=== PATIENT | female | born 1955 | race Caucasian/White ===

== ENCOUNTER 2017-09-19 06:43 | Day surgery (SDC) | payer BC ==
[~2017-09-19 06:43] MED LIST: Lactated Ringers 1,000 ML IV SCH
[2017-09-19] MEDS ORDERED: Midazolam 1 MG/ML 2 ML SDV ONE (06:58)
[2017-09-19] MEDS ORDERED: Propofol 200 MG/20 ML SDV ONE (06:58)
[2017-09-19] MEDS ORDERED: fentaNYL 100 MCG/2 ML SDV ONE (06:58)
[2017-09-19] MEDS ORDERED: Dexamethasone 4 MG/ML 5 ML MDV ONE (07:28)
[2017-09-19] MEDS ORDERED: Ondansetron 4 MG/2 ML SDV ONE (07:28)
--- NOTE | 2017-09-19 07:37 | PCM.PREANE ---
Preanesthetic Assessment - Anesthesia/Transfusion/Family Hx Anesthesia History: Prior Anesthesia Reaction Type of Anesthesia Reaction: Excessive Nausea/Vomiting Family History of Anesthesia Reaction: No Transfusion History: No Prior Transfusion(s) - Review of Systems General: No Symptoms Pulmonary: No Symptoms Cardiovascular: No Symptoms Neurological: No Symptoms Other: Reports: None - Physical Assessment NPO Status Date: 09/18/17 O2 Sat by Pulse Oximetry: 92 Respiratory Rate: 16 Vital Signs: Last Vital Signs Temp 36.3 C 09/19/17 06:53 Pulse 79 09/19/17 06:53 Resp 16 09/19/17 06:53 BP 139/90 09/19/17 06:53 Pulse Ox 92 L 09/19/17 06:53 Height: 1.63 m Weight: 106.594 kg ASA Class: 2 Mental Status: Alert & Oriented x3 Airway Class: Mallampati = 2 Dentition: Reports: Normal Dentition ROM/Head Extension: Full Lungs: Clear to Auscultation, Normal Respiratory Effort Cardiovascular: Regular Rate, Regular Rhythm - Allergies Allergies/Adverse Reactions: Allergies Allergy/AdvReac Type Severity Reaction Status Date / Time No Known Allergies Allergy Verified 08/13/14 07:34 - Anesthesia Plan Pre-Op Medication Ordered: None Beta Carrol: Atenolol - Acknowledgements Anesthesia Type Planned: MAC Pt an Appropriate Candidate for the Planned Anesthesia: Yes Alternatives and Risks of Anesthesia Discussed w Pt/Guardian: Yes Pt/Guardian Understands and Agrees with Anesthesia Plan: Yes Additional Comments: colonosopy for sx, pmh: htn, hx of a fib/flutter (parox), remote hx of rad after pneumonia 4 yr ago. last used inhaler 12 mo ago. 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: Musculoskeletal History: Reports: Back Pain, Chronic, Fracture Other Musculoskeletal History: chronic michelle knee pain, hx fx radius-ulna Endocrine/Metabolic History: Reports: Obesity/BMI 30+ - Infectious Disease History Infectious Disease History: Reports: Chicken Pox, Herpes, Measles, Mumps - Past Surgical History Head Surgeries/Procedures: Reports: None HEENT Surgical History: Reports: Cataract Surgery GI Surgical History: Reports: Appendectomy, Cholecystectomy Female Surgical History: Reports: Section, Hysterectomy Musculoskeletal Surgical History: Reports: Arthroscopic Knee Other Musculoskeletal Surgeries/Procedures:: external fixator - SUBSTANCE USE Smoking Status *Q: Never Smoker Recreational Drug Use History: No - HOME MEDS Home Medications: Home Meds Aspirin [Adult Low Dose Aspirin EC] 81 mg PO DAILY 02/06/16 [History] Celecoxib [CeleBREX] 200 mg PO BID PRN 02/06/16 [History] Metoprolol Succinate [Toprol XL 100mg] 100 mg PO DAILY 02/06/16 [History] Albuterol Sulfate [Proair Hfa] 2 puff INH ASDIRECTED PRN 09/14/17 [History] Calcium Citrate/Vitamin D3 [Citracal-Vit D 250 MG-200] 2 tab PO DAILY 09/14/17 [ History] Estradiol [Vagifem] 1 tab VAG ASDIRECTED 09/14/17 [History] Glucosamine/D3/Boswellia Gabriella [Osteo Bi-Flex Tablet] 2 tab PO DAILY 09/14/17 [ History] Ibandronate Sodium 150 mg PO ASDIRECTED 09/14/17 [History] Multivit-Min/FA/Lycopene/Lut [Centrum Silver Tablet] 1 tab PO DAILY 09/14/17 [ History] Simvastatin [Zocor] 20 mg PO BEDTIME 09/14/17 [History] Ubidecarenone [Coq-10] 100 mg PO ASDIRECTED 09/14/17 [History] - CURRENT (IN HOUSE) MEDS Current Meds: Current Medications Lactated Ringer's (Ringers, Lactated) 1,000 mls @ 125 mls/hr IV ASDIRECTED SLY Last Admin: 09/19/17 06:58 Dose: 125 mls/hr Discontinued Medications Dexamethasone (Dexamethasone) Confirm Administered Dose 20 mg .ROUTE .STK-MED ONE Stop: 09/19/17 07:29 Fentanyl (Sublimaze) Confirm Administered Dose 100 mcg .ROUTE .STK-MED ONE Stop: 09/19/17 06:59 Lidocaine HCl (Xylocaine-Mpf 1%) Confirm Administered Dose 5 ml .ROUTE .STK-MED ONE Stop: 09/19/17 06:59 Midazolam HCl (Versed 1 Mg/Ml) Confirm Administered Dose 2 mg .ROUTE .STK-MED ONE Stop: 09/19/17 06:59 Ondansetron HCl (Zofran) Confirm Administered Dose 4 mg .ROUTE .STK-MED ONE Stop: 09/19/17 07:29 Propofol (Diprivan 20 Ml) Confirm Administered Dose 200 mg .ROUTE .STK-MED ONE Stop: 09/19/17 06:59
[2017-09-19] MEDS ORDERED: Lactated Ringers 1,000 ML IV SCH (08:15)
--- NOTE | 2017-09-19 08:15 | PCM.OPNOTE ---
- General Post-Op/Procedure Note Date of Surgery/Procedure: 09/19/17 Operative Procedure(s): Colonoscopy Pre Op Diagnosis: Change in bowel habits Post-Op Diagnosis: No evidence of neoplasia Anesthesia Technique: MAC (ASA II) Primary Surgeon: Timmy El Condition: Good Free Text/Narrative:: Dictation [id number] CPT CODE [id number]
--- NOTE | 2017-09-19 08:26 | PCM.POSTAN ---
POST ANESTHESIA ASSESSMENT - MENTAL STATUS Mental Status: Alert, Oriented - RESPIRATORY Respiratory Status: Respiratory Rate WNL, Airway Patent, O2 Saturation Stable - CARDIOVASCULAR CV Status: Pulse Rate WNL, Blood Pressure Stable - GASTROINTESTINAL GI Status: No Symptoms - PAIN Pain Score: 0 - POST OP HYDRATION Hydration Status: Adequate & Stable
--- NOTE | 2017-09-19 08:26 | PCM48HPAN ---
Post Anesthesia Note - EVALUATION WITHIN 48HRS OF ANESTHETIC Vital Signs in Normal Range: Yes Patient Participated in Evaluation: Yes Respiratory Function Stable: Yes Airway Patent: Yes Cardiovascular Function Stable: Yes Hydration Status Stable: Yes Pain Control Satisfactory: Yes Nausea and Vomiting Control Satisfactory: Yes Mental Status Recovered: Yes
--- NOTE | 2017-09-19 08:30 | OR ---
SURGEON: Timmy El M.D. DATE OF PROCEDURE: 09/19/2017 OPERATION PERFORMED: Colonoscopy. ANESTHESIA: MAC. ASA CLASSIFICATION: II. PREOPERATIVE DIAGNOSIS: Change in bowel habits. POSTOPERATIVE DIAGNOSIS: No evidence of colonic neoplasia. DESCRIPTION OF PROCEDURE: The patient was taken to the endoscopy room and positioned on the endoscopy table in the left lateral decubitus position. Time-out was called for appropriate identification of patient and procedure. Monitored anesthesia care was provided. The colonoscope was inserted into the rectum and advanced with minimal difficulty to the cecum where the colonoscope was retroflexed to visualize the ascending colon from below. The colonoscope was then straightened and slowly withdrawn. The cecum, ascending colon, hepatic flexure, transverse colon, splenic flexure, descending colon, sigmoid colon, and rectum were very well visualized. No tumors, polyps, diverticula, or angiodysplastic changes were noted. The colonoscope was withdrawn to the rectum and retroflexed to visualize the anal orifice from above. No tumors or polyps were seen and there were no acute hemorrhoidal changes. The colonoscope was then straightened. The rectum aspirated and the colonoscope removed. The patient tolerated the procedure well and was taken to recovery room in stable condition. ANGELA HORAN /[id number]
[2017-09-19 08:39] VITALS: BP 102/70
== END 2017-09-19 08:40 | disposition home or self-care (01) ==
LOC: MW.SDS 06:43
PROVIDERS: ATTEND Surgery
DX: R19.4 Change in bowel habit (principal); M17.10 Unilateral primary osteoarthritis, unspecified knee; I48.92 Unspecified atrial flutter; I10 Essential (primary) hypertension; E78.5 Hyperlipidemia, unspecified; M81.0 Age-related osteoporosis without current pathological fracture; E66.9 Obesity, unspecified; Z87.01 Personal history of pneumonia (recurrent); Z79.82 Long term (current) use of aspirin; Z79.899 Other long term (current) drug therapy; Z98.49 Cataract extraction status, unspecified eye; Z90.49 Acquired absence of other specified parts of digestive tract; Z90.710 Acquired absence of both cervix and uterus; Z98.890 Other specified postprocedural states; Z68.41 Body mass index [BMI] 40.0-44.9, adult
CPT/HCPCS: 45378; J1100; J2250; J2405; J3010; J7120; 00810; J2704

== ENCOUNTER 2019-02-05 09:52 | Inpatient (IN) | payer BC ==
[~2019-02-05 09:52] MED LIST changes: +Acetaminophen 1,000 MG in Premix Bag 1 BAG IV SCH; +Famotidine 20 MG/2 ML SDV IVPUSH SCH; +Ketorolac 30 MG/ML SDV IVPUSH SCH; -Lactated Ringers 1,000 ML IV SCH; +Ropivacaine 49.25 ML, Ketorolac 30 MG, EPINEPHrine 0.5 MG, cloNIDine 80 MCG in Sodium C... INJECT SCH; +Scopolamine 1.5 MG Transdermal Patch TRDERM SCH; +Tranexamic Acid 2,000 MG in Sodium Chloride 0.9% 100 ML IV SCH; +ceFAZolin 2 GM in Premix Bag 1 BAG IV SCH
[2019-02-05] MEDS ORDERED: Propofol 200 MG/20 ML SDV ONE ×2 (10:06→13:13)
[2019-02-05] MEDS ORDERED: fentaNYL 100 MCG/2 ML SDV ONE ×3 (10:06→14:02)
[2019-02-05] MEDS ORDERED: ceFAZolin/Dextrose,Iso-Osmotic 2 GM/50 ML Duplex Bag IV ONE (10:15)
[2019-02-05] MEDS: Lactated Ringers 1,000 ML IV SCH (10:32)
--- NOTE | 2019-02-05 10:35 | PCM.PREANE ---
Preanesthetic Assessment - Anesthesia/Transfusion/Family Hx Anesthesia History: Prior Anesthesia Without Reaction Family History of Anesthesia Reaction: No Transfusion History: No Prior Transfusion(s) Intubation History: Unknown - Review of Systems General: No Symptoms Pulmonary: No Symptoms Cardiovascular: No Symptoms Gastrointestinal: No Symptoms Neurological: No Symptoms Other: Reports: None - Physical Assessment Height: 1.63 m Weight: 106.594 kg ASA Class: 3 Mental Status: Alert & Oriented x3 Airway Class: Mallampati = 2 Dentition: Reports: Normal Dentition Thyro-Mental Finger Breadths: 2 Mouth Opening Finger Breadths: 3 ROM/Head Extension: Full Lungs: Clear to Auscultation, Normal Respiratory Effort Cardiovascular: Regular Rate, Regular Rhythm - Allergies Allergies/Adverse Reactions: Allergies Allergy/AdvReac Type Severity Reaction Status Date / Time hydromorphone [From Dilaudid] Allergy Nausea and Verified 01/30/19 09:42 Vomiting - Blood Blood Available: No - Anesthesia Plan Pre-Op Medication Ordered: None - Acknowledgements Anesthesia Type Planned: Spinal (general anesthesia back-up) Pt an Appropriate Candidate for the Planned Anesthesia: Yes Alternatives and Risks of Anesthesia Discussed w Pt/Guardian: Yes Pt/Guardian Understands and Agrees with Anesthesia Plan: Yes PreAnesthesia Questionnaire HEENT History: Reports: Impaired Vision Other HEENT History: wears glasses "sometimes" Cardiovascular History: Reports: High Cholesterol, Hypertension, Other (See Below) Other Cardiovascular History: hx atrial flutter Respiratory History: Reports: Other (See Below) Other Respiratory History: hx pneumonia Gastrointestinal History: Reports: None Genitourinary History: Reports: 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: Musculoskeletal History: Reports: Fracture, Osteoarthritis, Osteoporosis, Other (See Below) Other Musculoskeletal History: hx fx radius-ulna, brachail plexus left shoulder since Neurological History: Reports: None Psychiatric History: Reports: None Endocrine/Metabolic History: Reports: Obesity/BMI 30+ (BMI 40.3) Hematologic History: Reports: None Immunologic History: Reports: None Oncologic (Cancer) History: Reports: None Dermatologic History: Reports: None - Infectious Disease History Infectious Disease History: Reports: Chicken Pox, Herpes, Measles, Mumps - Past Surgical History Head Surgeries/Procedures: Reports: None HEENT Surgical History: Reports: Cataract Surgery, Tonsillectomy Respiratory Surgical History: Reports: None GI Surgical History: Reports: Appendectomy, Cholecystectomy Female Surgical History: Reports: Section, Hysterectomy, Oophorectomy Neurological Surgical History: Reports: None Musculoskeletal Surgical History: Reports: Arthroscopic Knee Other Musculoskeletal Surgeries/Procedures:: external fixator, michelle knee scope Oncologic Surgical History: Reports: None Dermatological Surgical History: Reports: None - SUBSTANCE USE Smoking Status *Q: Never Smoker Recreational Drug Use History: No - HOME MEDS Home Medications: Home Meds Aspirin [Adult Low Dose Aspirin EC] 81 mg PO DAILY 02/06/16 [History] Celecoxib [CeleBREX] 200 mg PO BID PRN 02/06/16 [History] Metoprolol Succinate [Toprol XL 100mg] 100 mg PO DAILY 02/06/16 [History] Albuterol Sulfate [Proair Hfa] 2 puff INH ASDIRECTED PRN 09/14/17 [History] Calcium Citrate/Vitamin D3 [Citracal-Vit D 250 MG-200] 2 tab PO DAILY 09/14/17 [ History] Estradiol [Vagifem] 1 tab VAG ASDIRECTED 09/14/17 [History] Glucosamine/D3/Boswellia Gabriella [Osteo Bi-Flex Tablet] 2 tab PO DAILY 09/14/17 [ History] Ibandronate Sodium 150 mg PO ASDIRECTED 09/14/17 [History] Multivit-Min/FA/Lycopene/Lut [Centrum Silver Tablet] 1 tab PO DAILY 09/14/17 [ History] Simvastatin [Zocor] 20 mg PO BEDTIME 09/14/17 [History] Ubidecarenone [Coq-10] 100 mg PO ASDIRECTED 09/14/17 [History] Meclizine HCl 25 mg PO ASDIRECTED PRN 01/30/19 [History] Ondansetron [Zofran] 4 mg PO ASDIRECTED PRN 01/30/19 [History] - CURRENT (IN HOUSE) MEDS Current Meds: Current Medications Famotidine (Pepcid) 40 mg IVPUSH ONARRIVE SLY Acetaminophen 1,000 mg/ Premix 100 mls @ 400 mls/hr IV ONARRIVE SLY Cefazolin Sodium/Dextrose 2 gm (/ Premix) 50 mls @ 100 mls/hr IV ONCALL SLY Ropivacaine 49.25 ml/Ketorolac Tromethamine 30 mg/Epinephrine HCl 0.5 mg/ Clonidine HCl 80 mcg/ Sodium Chloride 75 mls @ 50 mls/sec INJECT ASDIRECTED [facility] Lactated Ringer's (Ringers, Lactated) 1,000 mls @ 100 mls/hr IV ASDIRECTED SLY Last Admin: 02/05/19 10:32 Dose: 100 mls/hr Tranexamic Acid 2,000 mg/ (Sodium Chloride) 120 mls @ 600 mls/hr IV ASDIRECTED [facility] Ketorolac Tromethamine (Toradol) 30 mg IVPUSH ONARRIVE SLY Scopolamine (Transderm-Scop) 1.5 mg TRDERM ONARRIVE [facility] Last Admin: 02/05/19 10:32 Dose: 1.5 mg Discontinued Medications Cefazolin Sodium/Dextrose (Ancef) Confirm Administered Dose 2 gm IV .STK-MED ONE Stop: 02/05/19 10:16 Fentanyl (Sublimaze) Confirm Administered Dose 100 mcg .ROUTE .STK-MED ONE Stop: 02/05/19 10:07 Propofol (Diprivan 20 Ml) Confirm Administered Dose 400 mg .ROUTE .STK-MED ONE Stop: 02/05/19 10:07 Tranexamic Acid (Cyklokapron) Confirm Administered Dose 2,000 mg .ROUTE .STK- MED ONE Stop: 02/05/19 08:35
[2019-02-05] MEDS ORDERED: Midazolam 1 MG/ML 2 ML SDV ONE ×4 (11:29→12:26)
[2019-02-05] MEDS ORDERED: Docusate Sodium 100 MG Cap PO PRN (13:48)
[2019-02-05] MEDS ORDERED: Aluminum Hydroxide/Magnesium Hydroxide/Simethicone Susp 30 ML Cup PO PRN (13:48)
[2019-02-05] MEDS ORDERED: Morphine PF 30 MG/30 ML PCA Vial IV PRN (13:48)
[2019-02-05] MEDS ORDERED: Sodium Chloride 0.9% 10 ML Syringe FLUSH PRN (13:48)
[2019-02-05] MEDS ORDERED: Sodium Chloride 0.9% 2.5 ML Syringe FLUSH PRN (13:48)
[2019-02-05] MEDS ORDERED: diphenhydrAMINE 25 MG Cap PO PRN (13:48)
[2019-02-05] MEDS ORDERED: Bisacodyl 10 MG Supp RECTAL PRN (13:48)
[2019-02-05] MEDS ORDERED: Ketorolac 30 MG/ML SDV IVPUSH SCH ×2 (14:00→20:00)
[2019-02-05] MEDS ORDERED: Meclizine 25 MG Tab PO PRN (14:01)
[2019-02-05] MEDS ORDERED: Ondansetron 4 MG Tab PO PRN (14:01)
[2019-02-05] MEDS ORDERED: Albuterol 8 GM Inhaler INH PRN (14:01)
--- NOTE | 2019-02-05 14:17 | PCM.OPNOTE ---
- General Post-Op/Procedure Note Date of Surgery/Procedure: 02/05/19 Operative Procedure(s): L TKA Post-Op Diagnosis: DJD left knee Anesthesia Technique: Moderate Sedation, Spinal Primary Surgeon: Bernadette Echols Forklift Driver: Loraine Queen Forklift Driver: Bianca Irvin in mLs: 50 Condition: Good Free Text/Narrative:: tt=48 min #[id number]
[2019-02-05] MEDS ORDERED: fentaNYL 100 MCG/2 ML SDV IVPUSH PRN (14:19)
--- NOTE | 2019-02-05 14:36 | PCM.POSTAN ---
POST ANESTHESIA ASSESSMENT - MENTAL STATUS Mental Status: Alert, Oriented - RESPIRATORY Respiratory Status: Respiratory Rate WNL, Airway Patent, O2 Saturation Stable - CARDIOVASCULAR CV Status: Pulse Rate WNL, Blood Pressure Stable - GASTROINTESTINAL GI Status: No Symptoms - POST OP HYDRATION Hydration Status: Adequate & Stable
--- NOTE | 2019-02-05 15:38 | OR ---
SURGEON: Bernadette Echols MD DATE OF PROCEDURE: 02/05/2019 PREOPERATIVE DIAGNOSIS: Degenerative joint disease, left knee, tricompartmental. POSTOPERATIVE DIAGNOSIS: Degenerative joint disease, left knee, tricompartmental. PROCEDURE: Left total knee arthroplasty using patient specific instrumentation. ASSISTANTS: 1. LEE Salazar. 2. Bianca Irvin PA-C. ANESTHESIA: Spinal with sedation. ESTIMATED BLOOD LOSS: 50 mL. TOURNIQUET TIME: 48 minutes. COMPLICATIONS: None. DVT PROPHYLAXIS: PAS boot and DAVION hose to the nonoperative leg. IMPLANTS USED: Chacha Persona femoral component size 9 standard (LPS), tibial component size G, 10-mm all-polyethylene articular surface, and 35-mm all-polyethylene patella. FINDINGS: Intraoperative findings showed severe tricompartmental degenerative changes with grade 4 chondromalacia. Osteophyte formation was also noted. She did have loose bodies present within the knee joint. No significant synovitis was found. BRIEF HISTORY: Price is a 63-year-old female who has had complaint of progressive left knee pain. She had failed conservative treatment. Due to her lack of response to conservative treatment, I did recommend surgical intervention. The risks and goals of the procedure were discussed with the patient and were documented preoperatively. She agreed to proceed. DESCRIPTION OF PROCEDURE: The patient was properly identified and brought to the operating room. The patient was then transferred from the operating room cart and placed on the operating table in a supine position. Anesthesia was administered by the anesthesia staff. After adequate anesthesia was obtained, a well-padded tourniquet was applied to the surgical lower extremity. Jimenez catheter was placed. The lower extremity was then prepped in standard fashion using ChloraPrep solution. It was then sterilely draped. A time-out was performed to ensure correct site and procedure. Preoperative antibiotics were given along with one gram of tranexamic acid IV. The surgical site had been marked preoperatively. An Esmarch was used to exsanguinate the right lower extremity and the tourniquet was inflated. An incision was made over the anterior aspect of the knee. The subcutaneous tissues were dissected down to the level of the fascia. A medial parapatellar approach to the knee was made. A portion of the infrapatellar fat pad was then excised. The distal femur was then exposed. The femoral patient-specific cutting guide was then placed. Pins were also placed. The distal femoral cutting block was placed and the distal femoral cut was made. Instrumentation was then removed. Both Whitesides' line and the epicondylar axis were then marked with electrocautery. The 4-in-1 cutting block was placed. This was placed in a slightly externally rotated position, which corresponded well with the previously drawn lines. The cutting guide was then pinned into position. An Maximo wing guide was used to check the depth of resection of our anterior condylar cut and it was felt that no notching would occur. The anterior condylar cut was then made followed by the posterior condylar cut. Both the posterior chamfer and anterior chamfer cuts were then made. The cutting block was then removed along with the excess bony remnants. We then turned our attention to the tibia. The anterior cruciate ligament and posterior cruciate ligament were released and a posterior cruciate ligament retractor was placed to allow the tibia to be pulled anteriorly. The tibial patient-specific guide was then placed on the proximal tibia. This fit anatomically. The pins were then placed. The proximal tibia cutting guide was then placed and screwed into position. The proximal tibial resection was then made with care being taken to protect the patellar tendon. The bony resection was then removed. The remainder of the medial and lateral meniscus were then excised. Care was taken to protect the popliteus tendon. The tibia was then sized to the appropriate size. The distal femur was then elevated. The posterior capsule was stripped off the distal femur both medially and laterally. The posterior capsule along with the medial and lateral gutters were then injected with a standard mixture consisting of clonidine, epinephrine, Toradol, and Ropivacaine, unless any allergies were found preoperatively. The femoral component was then placed onto the distal femur in a slightly lateral position. This fit the femur well. A box cut was then made without difficulty. This was then removed. The tibial trial along with the polyethylene liner was then placed. The knee came easily into full extension and was stable to varus and valgus stressing both in full extension and flexion. Any additional releases were performed at this time. We then returned our attention to the patella. The patella was everted and towel clamps were used to hold the patella in position. It was resected to a 15 millimeter thickness. It was then sized to the appropriate size. It was prepared in the usual fashion after placing the predetermined size clamps. This was placed in a slightly superior and medial position. The clamp was then removed. The patellar trial button was placed. The knee was taken through a range of motion using the no-touch technique. The patella tracked centrally. A drop steven was then placed to check alignment. All instruments were then removed from the knee. The tibial sizer was then placed on the tibia. The tibia was prepared in the usual fashion using the reamer and broach. This was then removed. All bony surfaces were copiously irrigated with Pulsavac solution. They were then suctioned dry. Cement was prepared on the back table in the usual manner. Once it was prepared, the bone ends were again suctioned dry. The tibia was cemented into place first. This was malleted into position. Excess cement was then cleared. The femur was then placed in a similar manner. We placed the polyethylene trial into place and the knee was brought into full extension. An axial load was placed while keeping the knee in full extension. The patella button was also cemented into position and the clamp was used to hold this in place as the cement was allowed to cure. The wound was again copiously irrigated with saline solution using a Pulsavac club steward. Following this 1 g of tranexamic acid was applied to the wound topically. After we had adequate curing of the cement, the knee was again taken through a range of motion. The size of the polyethylene was then determined. The polyethylene trial was then removed. The tibial tray was suctioned to make sure there was no remaining soft tissue or cement. Excess cement was cleared from around the edges of the prosthesis as well. The tourniquet was then deflated. We were able to observe for any excess bleeding and none was noted. Electrocautery was used to maintain hemostasis. An additional gram of tranexamic acid was given IV. The retractors were again placed and the predetermined polyethylene was then placed. This was locked into position without difficulty. The knee was again taken through a range of motion with no change from the prior exam. The fascial layer was closed with Number One Vicryl. The subcutaneous tissues were closed with 2-0 Vicryl. The skin was closed with rafia. Xeroform gauze was placed over the wound and a bulky dressing was applied. The patient was then awakened from anesthesia and transferred back to the operating room cart. They were brought to the recovery room in stable condition. All needle and sponge counts were correct. GHULAM / AUNG /[id number]
--- NOTE | 2019-02-05 17:07 | CR ---
EXAMINATION: Left knee HISTORY: Arthroplasty COMPARISON: 10/04/2018 TECHNIQUE: 2 views FINDINGS/IMPRESSION: Left total knee hardware is demonstrated in stable position good position and alignment. Postoperative soft tissue changes are noted.
[2019-02-05] MEDS: Ondansetron 4 MG/2 ML SDV IVPUSH PRN (17:33)
[2019-02-05] MEDS: Acetaminophen 1,000 MG in Premix Bag 1 BAG IV SCH (17:37)
[2019-02-05] MEDS: oxyCODONE 5 MG Tab PO PRN (18:48)
[2019-02-05] MEDS: ceFAZolin 2 GM in Premix Bag 1 BAG IV SCH (19:45)
[2019-02-05] MEDS ORDERED: dimenhyDRINATE 50 MG Tab PO PRN (20:05)
[2019-02-05] MEDS: Ketorolac 30 MG/ML SDV IVPUSH SCH (22:09)
[2019-02-06] MEDS: Lactated Ringers 1,000 ML IV SCH
[2019-02-06] MEDS: Acetaminophen 1,000 MG in Premix Bag 1 BAG IV SCH ×2 (00:10→06:15)
[2019-02-06] MEDS: Ondansetron 4 MG/2 ML SDV IVPUSH PRN (00:30)
[2019-02-06] MEDS: oxyCODONE 5 MG Tab PO PRN (00:30)
[2019-02-06] MEDS: Ketorolac 30 MG/ML SDV IVPUSH SCH (04:30)
[2019-02-06] MEDS: ceFAZolin 2 GM in Premix Bag 1 BAG IV SCH (04:30)
[2019-02-06] MEDS ORDERED: Morphine 2 MG/ML Syringe IVPUSH PRN (06:00)
[2019-02-06] MEDS: Acetaminophen/oxyCODONE 325-5 MG Tab PO PRN ×5 (06:20→22:53)
--- NOTE | 2019-02-06 07:45 | PCM48HPAN ---
Post Anesthesia Note - EVALUATION WITHIN 48HRS OF ANESTHETIC Vital Signs in Normal Range: Yes Patient Participated in Evaluation: Yes Respiratory Function Stable: Yes Airway Patent: Yes Cardiovascular Function Stable: Yes Hydration Status Stable: Yes Pain Control Satisfactory: Yes Nausea and Vomiting Control Satisfactory: Yes Mental Status Recovered: Yes Resp Rate: 16 - COMMENTS/OBSERVATIONS Free Text/Narrative:: N/V through the night.
[2019-02-06] MEDS: Polyethylene Glycol 3350 Powder 17 GM Packet PO SCH (08:35)
[2019-02-06] MEDS: Aspirin 325 MG Tab.EC PO SCH ×2 (08:36→20:46)
[2019-02-06] MEDS: Metoprolol Succinate 100 MG Tab.ER PO SCH (08:36)
[2019-02-06] MEDS: Famotidine 20 MG Tab PO SCH (08:36)
[2019-02-06] MEDS: Celecoxib 100 MG Cap PO SCH ×2 (08:37→20:46)
--- NOTE | 2019-02-06 13:39 | PCM.SURGPN ---
<Loraine Queen A - Last Filed: 02/06/19 13:34> - General Info Date of Service: 02/06/19 (0800) Date of Surgery/Procedure: 02/05/19 (s/p LEFT TKA) POD#: 1 Post-Op Diagnosis: DEGENERATIVE JOINT DISEASE, LEFT KNEE, TRICOMPARTMENTAL Admission Diagnosis/Problem: Left knee pain Functional Status: Reports: New Symptoms (N/V). Denies: Tolerating Diet (n/v overnight, she suspects is secondary to [employer]ADER morphine use as is 'sensitive to pain medications." ), Ambulating (did not ambulate yesterday with PT after PACU transfer), Urinating (esquivel catheter still in place d/t urine output at 550) - Review of Systems General: Reports: Other (N/V). Denies: Fever HEENT: Reports: No Symptoms Pulmonary: Reports: No Symptoms. Denies: Shortness of Breath Cardiovascular: Reports: No Symptoms. Denies: Chest Pain Gastrointestinal: Reports: Nausea Musculoskeletal: Reports: Joint Pain Skin: Reports: No Symptoms Neurological: Reports: No Symptoms. Denies: Confusion Psychiatric: Reports: No Symptoms - Patient Data Vitals - Most Recent: Last Vital Signs Temp 36.6 C 02/06/19 07:08 Pulse 63 02/06/19 08:36 Resp 16 02/06/19 07:45 BP 89/61 L 02/06/19 08:36 Pulse Ox 93 L 02/06/19 07:08 Weight - Most Recent: 106.594 kg I&O - Last 24 Hours: Intake & Output 02/05/19 02/06/19 02/06/19 22:59 06:59 14:59 Intake Total 550 Output Total 125 350 Balance -125 200 Lab Results Last 24 Hrs: Laboratory Results - last 24 hr 02/06/19 Range/Units 05:40 Hgb 12.0 (12.0-16.0) g/dL Hct 36.1 (36.0-46.0) % Med Orders - Current: Current Medications Al Hydroxide/Mg Hydroxide (Mag-Al Plus) 30 ml PO Q4H PRN PRN Reason: Indigestion Albuterol (Ventolin Hfa) 0 gm INH Q4H PRN PRN Reason: Shortness of Breath Aspirin (Ecotrin) 325 mg PO BID [facility] Last Admin: 02/06/19 08:36 Dose: 325 mg Bisacodyl (Dulcolax) 10 mg RECTAL DAILY PRN PRN Reason: Constipation Celecoxib (Celebrex) 200 mg PO BID [facility] Last Admin: 02/06/19 08:37 Dose: 200 mg Dimenhydrinate (Driminate) 50 mg PO Q8H PRN PRN Reason: Nausea/Vomiting Last Admin: 02/05/19 21:51 Dose: 50 mg Diphenhydramine HCl (Benadryl) 25 - 50 mg PO Q6H PRN PRN Reason: Itching Docusate Sodium (Colace) 100 mg PO BID PRN PRN Reason: Constipation Famotidine (Pepcid) 40 mg PO DAILY [facility] Last Admin: 02/06/19 08:36 Dose: 40 mg Lactated Ringer's (Ringers, Lactated) 1,000 mls @ 100 mls/hr IV ASDIRECTED [facility] Last Admin: 02/06/19 00:00 Dose: 100 mls/hr Meclizine HCl (Antivert) 25 mg PO Q8H PRN PRN Reason: Dizziness Metoprolol Succinate (Toprol Xl) 100 mg PO DAILY [facility] Last Admin: 02/06/19 08:36 Dose: 100 mg Morphine Sulfate (Morphine) 1 - 3 mg IVPUSH Q3H PRN PRN Reason: Pain Ondansetron HCl (Zofran) 4 mg IVPUSH Q6H PRN PRN Reason: Nausea/Vomiting Last Admin: 02/06/19 00:30 Dose: 4 mg Ondansetron HCl (Zofran) 4 mg PO Q6H PRN PRN Reason: Nausea Oxycodone/Acetaminophen (Percocet 325-5 Mg) 1 - 2 tab PO Q4H PRN PRN Reason: Pain Last Admin: 02/06/19 09:28 Dose: 1 tab Polyethylene Glycol (Miralax) 17 gm PO DAILY [facility] Last Admin: 02/06/19 08:35 Dose: 17 gm Scopolamine (Transderm-Scop) 1.5 mg TRDERM ONARRIVE [facility] Last Admin: 02/05/19 10:32 Dose: 1.5 mg Sodium Chloride (Saline Flush) 10 ml FLUSH ASDIRECTED PRN PRN Reason: Keep Vein Open Sodium Chloride (Saline Flush) 2.5 ml FLUSH ASDIRECTED PRN PRN Reason: Keep Vein Open Discontinued Medications Cefazolin Sodium/Dextrose (Ancef) Confirm Administered Dose 2 gm IV .STK-MED ONE Stop: 02/05/19 10:16 Famotidine (Pepcid) 40 mg IVPUSH ONARRIVE [facility] Last Admin: 02/05/19 10:33 Dose: 40 mg Fentanyl (Sublimaze) Confirm Administered Dose 100 mcg .ROUTE .STK-MED ONE Stop: 02/05/19 10:07 Fentanyl (Sublimaze) Confirm Administered Dose 100 mcg .ROUTE .STK-MED ONE Stop: 02/05/19 14:02 Fentanyl (Sublimaze) Confirm Administered Dose 100 mcg .ROUTE .STK-MED ONE Stop: 02/05/19 14:03 Fentanyl (Sublimaze) 50 mcg IVPUSH Q5M PRN PRN Reason: Pain (severe 7-10) Stop: 02/05/19 16:00 Acetaminophen 1,000 mg/ Premix 100 mls @ 400 mls/hr IV ONARRIVE [facility] Last Admin: 02/05/19 10:36 Dose: 400 mls/hr Cefazolin Sodium/Dextrose 2 gm (/ Premix) 50 mls @ 100 mls/hr IV ONCALL [facility] Ropivacaine 49.25 ml/Ketorolac Tromethamine 30 mg/Epinephrine HCl 0.5 mg/ Clonidine HCl 80 mcg/ Sodium Chloride 75 mls @ 50 mls/sec INJECT ASDIRECTED [facility] Tranexamic Acid 2,000 mg/ (Sodium Chloride) 120 mls @ 600 mls/hr IV ASDIRECTED [facility] Acetaminophen 1,000 mg/ Premix 100 mls @ 400 mls/hr IV Q6H [facility] Stop: 02/06/19 06:14 Last Admin: 02/06/19 06:15 Dose: 400 mls/hr Cefazolin Sodium/Dextrose 2 gm (/ Premix) 50 mls @ 100 mls/hr IV Q8H [facility] Stop: 02/06/19 04:29 Last Admin: 02/06/19 04:30 Dose: 100 mls/hr Ketorolac Tromethamine (Toradol) 30 mg IVPUSH ONARRIVE [facility] Last Admin: 02/05/19 10:34 Dose: 30 mg Ketorolac Tromethamine (Toradol) 30 mg IVPUSH Q6H [facility] Stop: 02/06/19 05:00 Last Admin: 02/05/19 16:17 Dose: 30 mg Ketorolac Tromethamine (Toradol) 30 mg IVPUSH Q6H [facility] Stop: 02/06/19 08:01 Last Admin: 02/05/19 20:10 Dose: Not Given Ketorolac Tromethamine (Toradol) 30 mg IVPUSH Q6H [facility] Stop: 02/06/19 04:01 Last Admin: 02/06/19 04:30 Dose: 30 mg Midazolam HCl (Versed 1 Mg/Ml) Confirm Administered Dose 2 mg .ROUTE .STK-MED ONE Stop: 02/05/19 11:30 Midazolam HCl (Versed 1 Mg/Ml) Confirm Administered Dose 2 mg .ROUTE .STK-MED ONE Stop: 02/05/19 11:30 Midazolam HCl (Versed 1 Mg/Ml) Confirm Administered Dose 2 mg .ROUTE .STK-MED ONE Stop: 02/05/19 11:30 Midazolam HCl (Versed 1 Mg/Ml) Confirm Administered Dose 2 mg .ROUTE .STK-MED ONE Stop: 02/05/19 12:27 Morphine Sulfate (Morphine Metal Door Assembler 30 Mg In 30 Ml) 0 mg IV ASDIRECTED PRN; Protocol PRN Reason: Pain Stop: 02/06/19 06:00 Last Admin: 02/05/19 14:25 Dose: 30 mg Oxycodone HCl (Oxycodone) 5 - 10 mg PO Q4H PRN PRN Reason: Pain Stop: 02/06/19 08:00 Last Admin: 02/06/19 00:30 Dose: 10 mg Propofol (Diprivan 20 Ml) Confirm Administered Dose 400 mg .ROUTE .STK-MED ONE Stop: 02/05/19 10:07 Propofol (Diprivan 20 Ml) Confirm Administered Dose 200 mg .ROUTE .STK-MED ONE Stop: 02/05/19 13:14 Tranexamic Acid (Cyklokapron) Confirm Administered Dose 2,000 mg .ROUTE .STK- MED ONE Stop: 02/05/19 08:35 - Exam Wound/Incisions: Dressing Dry and Intact, No Drainage. No: Erythema General: Alert, Oriented, Cooperative, No Acute Distress HEENT: Pupils Equal Neck: Supple Lungs: Normal Respiratory Effort Cardiovascular: Regular Rate GI/Abdominal Exam: Soft Extremities: No Pedal Edema, Other (Surgical dressing removed. Incision well approximated with rafia. No active drainage or surrounding erythema. AT/EHL/ GASTROC 5/5 Sensation grossly intact to LE. PP2+ ). No: Khalif's Sign Skin: Warm, Dry Neurological: No New Focal Deficit Psy/Mental Status: Alert, Normal Affect, Normal Mood - Problem List Review Problem List Initiated/Reviewed/Updated: Yes - My Orders Last 24 Hours: Active Orders 24 hr Category Date Time Status Communication Order [RC] PRN Care 02/05/19 13:48 Active Communication Order [RC] PRN Care 02/05/19 13:48 Active Neurovascular Check [RC] Q4H Care 02/05/19 13:48 Active Notify Provider Vital Signs [RC] ASDIRECTED Care 02/05/19 13:48 Active RT Incentive Spirometry [RC] Q1HWA Care 02/05/19 13:48 Active Urinary Catheter Removal [RC] ASDIRECTED Care 02/06/19 13:48 Active Vital Signs [RC] Q4H Care 02/05/19 13:48 Active Wound Care [RC] DAILY Care 02/05/19 13:48 Active PT Evaluation and Treatment [CONS] Routine Cons 02/05/19 13:48 Active [employer] Diet [DIET] Diet 02/05/19 Dinner Active HEMOGLOBIN/HEMATOCRIT,HH [HEME] DAILY Lab 02/07/19 06:00 Ordered Acetaminophen/oxyCODONE [Percocet 325-5 MG] Med 02/06/19 06:00 Active 1 - 2 tab PO Q4H PRN Albuterol [Ventolin HFA] Med 02/05/19 14:01 Active 0 gm INH Q4H PRN Alum Hydrox/Mag Hydrox/Simeth [Mag-Al Plus] Med 02/05/19 13:48 Active 30 ml PO Q4H PRN Aspirin [Ecotrin] Med 02/06/19 09:00 Active 325 mg PO BID Bisacodyl [Dulcolax] Med 02/05/19 13:48 Active 10 mg RECTAL DAILY PRN Celecoxib [CeleBREX] Med 02/06/19 09:00 Active 200 mg PO BID Docusate Sodium [Colace] Med 02/05/19 13:48 Active 100 mg PO BID PRN Famotidine [Pepcid] Med 02/06/19 09:00 Active 40 mg PO DAILY Meclizine [Antivert] Med 02/05/19 14:01 Active 25 mg PO Q8H PRN Metoprolol Succinate [Toprol XL] Med 02/06/19 09:00 Active 100 mg PO DAILY Morphine Med 02/06/19 06:00 Active 1 - 3 mg IVPUSH Q3H PRN Ondansetron [Zofran] Med 02/05/19 13:48 Active 4 mg IVPUSH Q6H PRN Ondansetron [Zofran] Med 02/05/19 14:01 Active 4 mg PO Q6H PRN Polyethylene Glycol 3350 [MiraLAX] Med 02/06/19 09:00 Active 17 gm PO DAILY Sodium Chloride 0.9% [Saline Flush] Med 02/05/19 13:48 Active 10 ml FLUSH ASDIRECTED PRN Sodium Chloride 0.9% [Saline Flush] Med 02/05/19 13:48 Active 2.5 ml FLUSH ASDIRECTED PRN dimenhyDRINATE [Driminate] Med 02/05/19 20:05 Active 50 mg PO Q8H PRN diphenhydrAMINE [Benadryl] Med 02/05/19 13:48 Active 25 - 50 mg PO Q6H PRN Convert IV to Saline Lock [OM.PC] PRN Oth 02/06/19 06:00 Ordered Ice Therapy [OM.PC] Routine Ot 02/05/19 13:48 Ordered Medication Orders Al Hydroxide/Mg Hydroxide (Mag-Al Plus) 30 ml PO Q4H PRN PRN Reason: Indigestion Albuterol (Ventolin Hfa) 0 gm INH Q4H PRN PRN Reason: Shortness of Breath Aspirin (Ecotrin) 325 mg PO BID [facility] Last Admin: 02/06/19 08:36 Dose: 325 mg Bisacodyl (Dulcolax) 10 mg RECTAL DAILY PRN PRN Reason: Constipation Celecoxib (Celebrex) 200 mg PO BID [facility] Last Admin: 02/06/19 08:37 Dose: 200 mg Dimenhydrinate (Driminate) 50 mg PO Q8H PRN PRN Reason: Nausea/Vomiting Last Admin: 02/05/19 21:51 Dose: 50 mg Diphenhydramine HCl (Benadryl) 25 - 50 mg PO Q6H PRN PRN Reason: Itching Docusate Sodium (Colace) 100 mg PO BID PRN PRN Reason: Constipation Famotidine (Pepcid) 40 mg PO DAILY [facility] Last Admin: 02/06/19 08:36 Dose: 40 mg Lactated Ringer's (Ringers, Lactated) 1,000 mls @ 100 mls/hr IV ASDIRECTED [facility] Last Admin: 02/06/19 00:00 Dose: 100 mls/hr Infusion: 02/06/19 00:00 Dose: 100 mls/hr Admin: 02/05/19 10:32 Dose: 100 mls/hr Meclizine HCl (Antivert) 25 mg PO Q8H PRN PRN Reason: Dizziness Metoprolol Succinate (Toprol Xl) 100 mg PO DAILY [facility] Last Admin: 02/06/19 08:36 Dose: 100 mg Morphine Sulfate (Morphine) 1 - 3 mg IVPUSH Q3H PRN PRN Reason: Pain Ondansetron HCl (Zofran) 4 mg IVPUSH Q6H PRN PRN Reason: Nausea/Vomiting Last Admin: 02/06/19 00:30 Dose: 4 mg Admin: 02/05/19 17:33 Dose: 4 mg Ondansetron HCl (Zofran) 4 mg PO Q6H PRN PRN Reason: Nausea Oxycodone/Acetaminophen (Percocet 325-5 Mg) 1 - 2 tab PO Q4H PRN PRN Reason: Pain Last Admin: 02/06/19 09:28 Dose: 1 tab Admin: 02/06/19 06:20 Dose: 1 tab Polyethylene Glycol (Miralax) 17 gm PO DAILY [facility] Last Admin: 02/06/19 08:35 Dose: 17 gm Scopolamine (Transderm-Scop) 1.5 mg TRDERM ONARRIVE [facility] Last Admin: 02/05/19 10:32 Dose: 1.5 mg Sodium Chloride (Saline Flush) 10 ml FLUSH ASDIRECTED PRN PRN Reason: Keep Vein Open Sodium Chloride (Saline Flush) 2.5 ml FLUSH ASDIRECTED PRN PRN Reason: Keep Vein Open - Assessment Assessment (Free Text/Narrative):: S/P LEFT TKA - Plan Plan (Free Text/Narrative):: Afebrile. N/V overnight deemed to be intolerance to morphine [employer]. Pain medication changed today to Percocet, and took only 1 tab this morning to assess tolerance to medication. Hg stable. Surgical dressing removed. Large AquaCell dressing applied. Neurovascular exam normal. Start ASA for DVT prophylaxis. Wear compression stockings and use SCDs when nonambulatory. [facility] Care ice therapy to manage post-surgical swelling. Plan discharge tomorrow. At current time, still has Esquivel catheter d/t low urine output. Pain management. Start PT today. Will reassess medication management this afternoon. <Bernadette Echols R - Last Filed: 02/06/19 18:19> - Patient Data Vitals - Most Recent: Last Vital Signs Temp 98.1 F 02/06/19 11:00 Pulse 55 L 02/06/19 11:00 Resp 16 02/06/19 11:00 BP 103/63 02/06/19 11:00 Pulse Ox 92 L 02/06/19 11:00 I&O - Last 24 Hours: Intake & Output 02/06/19 02/06/19 02/06/19 06:59 14:59 22:59 Intake Total 550 1490 Output Total 350 600 Balance 200 890 Lab Results Last 24 Hrs: Laboratory Results - last 24 hr 02/06/19 Range/Units 05:40 Hgb 12.0 (12.0-16.0) g/dL Hct 36.1 (36.0-46.0) % Med Orders - Current: Current Medications Al Hydroxide/Mg Hydroxide (Mag-Al Plus) 30 ml PO Q4H PRN PRN Reason: Indigestion Albuterol (Ventolin Hfa) 0 gm INH Q4H PRN PRN Reason: Shortness of Breath Aspirin (Ecotrin) 325 mg PO BID [facility] Last Admin: 02/06/19 08:36 Dose: 325 mg Bisacodyl (Dulcolax) 10 mg RECTAL DAILY PRN PRN Reason: Constipation Celecoxib (Celebrex) 200 mg PO BID [facility] Last Admin: 02/06/19 08:37 Dose: 200 mg Dimenhydrinate (Driminate) 50 mg PO Q8H PRN PRN Reason: Nausea/Vomiting Last Admin: 02/05/19 21:51 Dose: 50 mg Diphenhydramine HCl (Benadryl) 25 - 50 mg PO Q6H PRN PRN Reason: Itching Docusate Sodium (Colace) 100 mg PO BID PRN PRN Reason: Constipation Famotidine (Pepcid) 40 mg PO DAILY [facility] Last Admin: 02/06/19 08:36 Dose: 40 mg Lactated Ringer's (Ringers, Lactated) 1,000 mls @ 100 mls/hr IV ASDIRECTED [facility] Last Admin: 02/06/19 00:00 Dose: 100 mls/hr Meclizine HCl (Antivert) 25 mg PO Q8H PRN PRN Reason: Dizziness Metoprolol Succinate (Toprol Xl) 100 mg PO DAILY [facility] Last Admin: 02/06/19 08:36 Dose: 100 mg Morphine Sulfate (Morphine) 1 - 3 mg IVPUSH Q3H PRN PRN Reason: Pain Ondansetron HCl (Zofran) 4 mg IVPUSH Q6H PRN PRN Reason: Nausea/Vomiting Last Admin: 02/06/19 00:30 Dose: 4 mg Ondansetron HCl (Zofran) 4 mg PO Q6H PRN PRN Reason: Nausea Oxycodone/Acetaminophen (Percocet 325-5 Mg) 1 - 2 tab PO Q4H PRN PRN Reason: Pain Last Admin: 02/06/19 13:42 Dose: 2 tab Polyethylene Glycol (Miralax) 17 gm PO DAILY [facility] Last Admin: 02/06/19 08:35 Dose: 17 gm Scopolamine (Transderm-Scop) 1.5 mg TRDERM ONARRIVE [facility] Last Admin: 02/05/19 10:32 Dose: 1.5 mg Sodium Chloride (Saline Flush) 10 ml FLUSH ASDIRECTED PRN PRN Reason: Keep Vein Open Sodium Chloride (Saline Flush) 2.5 ml FLUSH ASDIRECTED PRN PRN Reason: Keep Vein Open Discontinued Medications Cefazolin Sodium/Dextrose (Ancef) Confirm Administered Dose 2 gm IV .STK-MED ONE Stop: 02/05/19 10:16 Famotidine (Pepcid) 40 mg IVPUSH ONARRIVE [facility] Last Admin: 02/05/19 10:33 Dose: 40 mg Fentanyl (Sublimaze) Confirm Administered Dose 100 mcg .ROUTE .STK-MED ONE Stop: 02/05/19 10:07 Fentanyl (Sublimaze) Confirm Administered Dose 100 mcg .ROUTE .STK-MED ONE Stop: 02/05/19 14:02 Fentanyl (Sublimaze) Confirm Administered Dose 100 mcg .ROUTE .STK-MED ONE Stop: 02/05/19 14:03 Fentanyl (Sublimaze) 50 mcg IVPUSH Q5M PRN PRN Reason: Pain (severe 7-10) Stop: 02/05/19 16:00 Acetaminophen 1,000 mg/ Premix 100 mls @ 400 mls/hr IV ONARRIVE [facility] Last Admin: 02/05/19 10:36 Dose: 400 mls/hr Cefazolin Sodium/Dextrose 2 gm (/ Premix) 50 mls @ 100 mls/hr IV ONCALL [facility] Ropivacaine 49.25 ml/Ketorolac Tromethamine 30 mg/Epinephrine HCl 0.5 mg/ Clonidine HCl 80 mcg/ Sodium Chloride 75 mls @ 50 mls/sec INJECT ASDIRECTED [facility] Tranexamic Acid 2,000 mg/ (Sodium Chloride) 120 mls @ 600 mls/hr IV ASDIRECTED [facility] Acetaminophen 1,000 mg/ Premix 100 mls @ 400 mls/hr IV Q6H [facility] Stop: 02/06/19 06:14 Last Admin: 02/06/19 06:15 Dose: 400 mls/hr Cefazolin Sodium/Dextrose 2 gm (/ Premix) 50 mls @ 100 mls/hr IV Q8H [facility] Stop: 02/06/19 04:29 Last Admin: 02/06/19 04:30 Dose: 100 mls/hr Ketorolac Tromethamine (Toradol) 30 mg IVPUSH ONARRIVE [facility] Last Admin: 02/05/19 10:34 Dose: 30 mg Ketorolac Tromethamine (Toradol) 30 mg IVPUSH Q6H [facility] Stop: 02/06/19 05:00 Last Admin: 02/05/19 16:17 Dose: 30 mg Ketorolac Tromethamine (Toradol) 30 mg IVPUSH Q6H [facility] Stop: 02/06/19 08:01 Last Admin: 02/05/19 20:10 Dose: Not Given Ketorolac Tromethamine (Toradol) 30 mg IVPUSH Q6H [facility] Stop: 02/06/19 04:01 Last Admin: 02/06/19 04:30 Dose: 30 mg Midazolam HCl (Versed 1 Mg/Ml) Confirm Administered Dose 2 mg .ROUTE .STK-MED ONE Stop: 02/05/19 11:30 Midazolam HCl (Versed 1 Mg/Ml) Confirm Administered Dose 2 mg .ROUTE .STK-MED ONE Stop: 02/05/19 11:30 Midazolam HCl (Versed 1 Mg/Ml) Confirm Administered Dose 2 mg .ROUTE .STK-MED ONE Stop: 02/05/19 11:30 Midazolam HCl (Versed 1 Mg/Ml) Confirm Administered Dose 2 mg .ROUTE .STK-MED ONE Stop: 02/05/19 12:27 Morphine Sulfate (Morphine Metal Door Assembler 30 Mg In 30 Ml) 0 mg IV ASDIRECTED PRN; Protocol PRN Reason: Pain Stop: 02/06/19 06:00 Last Admin: 02/05/19 14:25 Dose: 30 mg Oxycodone HCl (Oxycodone) 5 - 10 mg PO Q4H PRN PRN Reason: Pain Stop: 02/06/19 08:00 Last Admin: 02/06/19 00:30 Dose: 10 mg Propofol (Diprivan 20 Ml) Confirm Administered Dose 400 mg .ROUTE .STK-MED ONE Stop: 02/05/19 10:07 Propofol (Diprivan 20 Ml) Confirm Administered Dose 200 mg .ROUTE .STK-MED ONE Stop: 02/05/19 13:14 Tranexamic Acid (Cyklokapron) Confirm Administered Dose 2,000 mg .ROUTE .STK- MED ONE Stop: 02/05/19 08:35 - My Orders Last 24 Hours: Active Orders 24 hr Category Date Time Status Urinary Catheter Removal [RC] ASDIRECTED Care 02/06/19 13:48 Active HEMOGLOBIN/HEMATOCRIT,HH [HEME] DAILY Lab 02/07/19 06:00 Ordered Acetaminophen/oxyCODONE [Percocet 325-5 MG] Med 02/06/19 06:00 Active 1 - 2 tab PO Q4H PRN Aspirin [Ecotrin] Med 02/06/19 09:00 Active 325 mg PO BID Celecoxib [CeleBREX] Med 02/06/19 09:00 Active 200 mg PO BID Famotidine [Pepcid] Med 02/06/19 09:00 Active 40 mg PO DAILY Metoprolol Succinate [Toprol XL] Med 02/06/19 09:00 Active 100 mg PO DAILY Morphine Med 02/06/19 06:00 Active 1 - 3 mg IVPUSH Q3H PRN Polyethylene Glycol 3350 [MiraLAX] Med 02/06/19 09:00 Active 17 gm PO DAILY dimenhyDRINATE [Driminate] Med 02/05/19 20:05 Active 50 mg PO Q8H PRN Convert IV to Saline Lock [OM.PC] PRN Oth 02/06/19 06:00 Ordered Medication Orders Al Hydroxide/Mg Hydroxide (Mag-Al Plus) 30 ml PO Q4H PRN PRN Reason: Indigestion Albuterol (Ventolin Hfa) 0 gm INH Q4H PRN PRN Reason: Shortness of Breath Aspirin (Ecotrin) 325 mg PO BID [facility] Last Admin: 02/06/19 08:36 Dose: 325 mg Bisacodyl (Dulcolax) 10 mg RECTAL DAILY PRN PRN Reason: Constipation Celecoxib (Celebrex) 200 mg PO BID [facility] Last Admin: 02/06/19 08:37 Dose: 200 mg Dimenhydrinate (Driminate) 50 mg PO Q8H PRN PRN Reason: Nausea/Vomiting Last Admin: 02/05/19 21:51 Dose: 50 mg Diphenhydramine HCl (Benadryl) 25 - 50 mg PO Q6H PRN PRN Reason: Itching Docusate Sodium (Colace) 100 mg PO BID PRN PRN Reason: Constipation Famotidine (Pepcid) 40 mg PO DAILY [facility] Last Admin: 02/06/19 08:36 Dose: 40 mg Lactated Ringer's (Ringers, Lactated) 1,000 mls @ 100 mls/hr IV ASDIRECTED [facility] Last Admin: 02/06/19 00:00 Dose: 100 mls/hr Infusion: 02/06/19 00:00 Dose: 100 mls/hr Admin: 02/05/19 10:32 Dose: 100 mls/hr Meclizine HCl (Antivert) 25 mg PO Q8H PRN PRN Reason: Dizziness Metoprolol Succinate (Toprol Xl) 100 mg PO DAILY [facility] Last Admin: 02/06/19 08:36 Dose: 100 mg Morphine Sulfate (Morphine) 1 - 3 mg IVPUSH Q3H PRN PRN Reason: Pain Ondansetron HCl (Zofran) 4 mg IVPUSH Q6H PRN PRN Reason: Nausea/Vomiting Last Admin: 02/06/19 00:30 Dose: 4 mg Admin: 02/05/19 17:33 Dose: 4 mg Ondansetron HCl (Zofran) 4 mg PO Q6H PRN PRN Reason: Nausea Oxycodone/Acetaminophen (Percocet 325-5 Mg) 1 - 2 tab PO Q4H PRN PRN Reason: Pain Last Admin: 02/06/19 13:42 Dose: 2 tab Admin: 02/06/19 09:28 Dose: 1 tab Admin: 02/06/19 06:20 Dose: 1 tab Polyethylene Glycol (Miralax) 17 gm PO DAILY [facility] Last Admin: 02/06/19 08:35 Dose: 17 gm Scopolamine (Transderm-Scop) 1.5 mg TRDERM ONARRIVE [facility] Last Admin: 02/05/19 10:32 Dose: 1.5 mg Sodium Chloride (Saline Flush) 10 ml FLUSH ASDIRECTED PRN PRN Reason: Keep Vein Open Sodium Chloride (Saline Flush) 2.5 ml FLUSH ASDIRECTED PRN PRN Reason: Keep Vein Open - Plan Plan (Free Text/Narrative):: Pt seen and examined. Agree with above note. Patient sitting up in chair. States nausea resolved. Pain better controlled with po meds currently. Has had decreased uop so Esquivel remains in place. Currently uop ~50ml/hour. Will give 1L NS fluid bolus now and possible d/c esquivel catheter tonight. Continue with PT. Will require another night for pain management and observation. rrk
[2019-02-06] MEDS ORDERED: Sodium Chloride 0.9% 1,000 ML IV ONE (18:19)
[2019-02-07] MEDS: Acetaminophen/oxyCODONE 325-5 MG Tab PO PRN ×2 (04:25→08:25)
[2019-02-07 08:22] VITALS: BP 129/75
[2019-02-07] MEDS: Polyethylene Glycol 3350 Powder 17 GM Packet PO SCH (08:24)
[2019-02-07] MEDS: Aspirin 325 MG Tab.EC PO SCH (08:25)
[2019-02-07] MEDS: Metoprolol Succinate 100 MG Tab.ER PO SCH (08:25)
[2019-02-07] MEDS: Celecoxib 100 MG Cap PO SCH (08:25)
[2019-02-07] MEDS: Famotidine 20 MG Tab PO SCH (08:25)
== END 2019-02-07 10:45 | disposition home or self-care (01) | DRG 302 ==
LOC: MW.SDS 09:52 → MW.MS 13:17
PROVIDERS: ADMIT Orthopaedic Surgery; ATTEND Orthopaedic Surgery
PROC: 0SRD0J9 Replacement of Left Knee Joint with Synthetic Substitute, Cemented, Open Approach (ICD-10-PCS; principal; 2019-02-05)
DX: M17.0 Bilateral primary osteoarthritis of knee (principal); E66.9 Obesity, unspecified; Z68.41 Body mass index [BMI] 40.0-44.9, adult; M94.262 Chondromalacia, left knee; M25.762 Osteophyte, left knee; I10 Essential (primary) hypertension; E78.5 Hyperlipidemia, unspecified; M81.0 Age-related osteoporosis without current pathological fracture; R42 Dizziness and giddiness; E78.00 Pure hypercholesterolemia, unspecified; H54.7 Unspecified visual loss; Z79.82 Long term (current) use of aspirin; Z88.5 Allergy status to narcotic agent; Z90.710 Acquired absence of both cervix and uterus; Z79.899 Other long term (current) drug therapy
CPT/HCPCS: 36415; 73560-26-LT; 73560-LT; 85014; 85018; 86850; 86900; 86901; 97110-GP; 97116-GP; 97161-GP; A9270-GY; C1713; C1776; J0131; J0171; J0690; J0735; J1885; J2250; J2274; J2405; J2704; J2795; J3010; J3490; J7040; J7050; J7120

== ENCOUNTER 2022-06-23 05:59 | Inpatient (IN) | payer BC, MEDICARE ==
[~2022-06-23 05:59] MED LIST changes: -Acetaminophen 1,000 MG in Premix Bag 1 BAG IV SCH; +Albuterol 0.083% 2.5 MG/3 ML Neb Soln NEB PRN; -Famotidine 20 MG/2 ML SDV IVPUSH SCH; +HYDROmorphone 1 MG/ML Syringe IVPUSH PRN; -Ketorolac 30 MG/ML SDV IVPUSH SCH; +Metoclopramide 10 MG/2 ML SDV IVPUSH PRN; +Morphine 4 MG/ML VIAL IVPUSH PRN; +Naloxone 0.4 MG/ML SDV IVPUSH PRN; +Ondansetron 4 MG/2 ML SDV IVPUSH PRN; -Ropivacaine 49.25 ML, Ketorolac 30 MG, EPINEPHrine 0.5 MG, cloNIDine 80 MCG in Sodium C... INJECT SCH; -Scopolamine 1.5 MG Transdermal Patch TRDERM SCH; -Tranexamic Acid 2,000 MG in Sodium Chloride 0.9% 100 ML IV SCH; -ceFAZolin 2 GM in Premix Bag 1 BAG IV SCH
[2022-06-23] MEDS ORDERED: Famotidine 20 MG/2 ML SDV IVPUSH SCH (06:00)
[2022-06-23] MEDS ORDERED: Scopolamine 1.5 MG Transdermal Patch TRDERM SCH (06:00)
[2022-06-23] MEDS ORDERED: Tranexamic Acid 1,000 MG in Sodium Chloride 0.9% 100 ML IV ONE (06:00)
[2022-06-23] MEDS ORDERED: Ropivacaine 49.25 ML, Ketorolac 30 MG, EPINEPHrine 0.5 MG, cloNIDine 80 MCG in Sodium C... INJECT SCH (06:00)
[2022-06-23] MEDS: Lactated Ringers 1,000 ML IV SCH (07:02)
[2022-06-23] MEDS ORDERED: Lidocaine 2% 5 ML SDV ONE (07:20)
[2022-06-23] MEDS ORDERED: Midazolam 1 MG/ML 2 ML SDV ONE (07:20)
[2022-06-23] MEDS ORDERED: fentaNYL 100 MCG/2 ML SDV ONE ×3 (07:20→10:09)
[2022-06-23] MEDS ORDERED: propofoL 100 ML ONE (07:20)
[2022-06-23] MEDS ORDERED: Bupivacaine 0.25%/EPINEPHrine 1:200,000 10 ML SDV ONE (07:25)
[2022-06-23] MEDS ORDERED: Bupivacaine 0.5% 30 ML SDV ONE (07:25)
[2022-06-23] MEDS ORDERED: Famotidine 20 MG/2 ML SDV ONE (07:39)
[2022-06-23] MEDS ORDERED: Ondansetron 4 MG/2 ML SDV ONE (08:54)
[2022-06-23] MEDS ORDERED: Sodium Chloride 0.9% 10 ML Syringe FLUSH PRN (10:42)
[2022-06-23] MEDS ORDERED: diphenhydrAMINE 25 MG Cap PO PRN (10:42)
[2022-06-23] MEDS ORDERED: Sodium Chloride 0.9% 2.5 ML Syringe FLUSH PRN (10:42)
[2022-06-23] MEDS ORDERED: Bisacodyl 10 MG Supp RECTAL PRN (10:42)
[2022-06-23] MEDS ORDERED: Aluminum Hydroxide/Magnesium Hydroxide/Simethicone XS Susp 30 ML Cup PO PRN (10:42)
[2022-06-23] MEDS ORDERED: oxyCODONE 5 MG Tab PO PRN (10:42)
[2022-06-23] MEDS: fentaNYL 50 MCG/ML SDV IVPUSH PRN ×3 (11:12→11:52)
[2022-06-23] MEDS ORDERED: Ketamine 500 mg/10 ML MDV ONE (11:33)
[2022-06-23] MEDS ORDERED: Gabapentin 100 MG Cap ONE (11:41)
[2022-06-23] MEDS ORDERED: Ropivacaine 0.5% 5 MG/ML 30 ML SDV ONE (12:40)
[2022-06-23] MEDS: Ondansetron 4 MG/2 ML SDV IVPUSH PRN ×3 (13:06→21:54)
[2022-06-23] MEDS ORDERED: dimenhyDRINATE 50 MG Tab PO ONE (14:09)
[2022-06-23] MEDS: Acetaminophen 325 MG Tab PO SCH ×2 (15:48→18:33)
[2022-06-23] MEDS: Ketorolac 30 MG/ML SDV IVPUSH SCH ×3 (15:48→21:56)
[2022-06-23] MEDS ORDERED: Albuterol 8 GM Inhaler INH PRN (15:50)
[2022-06-23] MEDS ORDERED: Promethazine 25 MG/ML SDV IM PRN (16:18)
[2022-06-23] MEDS: ceFAZolin 2 GM in Premix Bag 1 BAG IV SCH ×2 (16:35→18:22)
[2022-06-23] MEDS: Gabapentin 300 MG Cap PO SCH ×2 (17:35→21:55)
[2022-06-23] MEDS: Aspirin 325 MG Tab PO SCH (18:32)
[2022-06-23] MEDS: Simvastatin 20 MG Tab PO SCH (21:54)
[2022-06-23] MEDS: Docusate Sodium 100 MG Cap PO SCH (21:54)
[2022-06-24] MEDS: Acetaminophen 325 MG Tab PO SCH ×4 (00:10→18:02)
[2022-06-24] MEDS: ceFAZolin 2 GM in Premix Bag 1 BAG IV SCH ×2 (00:11→00:21)
[2022-06-24] MEDS: Lactated Ringers 1,000 ML IV SCH ×3 (00:11→20:22)
[2022-06-24] MEDS ORDERED: Lactated Ringers 1,000 ML IV ONE (04:58)
[2022-06-24] MEDS: Ketorolac 30 MG/ML SDV IVPUSH SCH (05:06)
[2022-06-24] MEDS: Gabapentin 300 MG Cap PO SCH ×3 (05:06→22:09)
[2022-06-24 07:47] LABS: CARBON DIOXIDE,CO2 27.5 mmol/L (21.0-32.0); POTASSIUM,K 4.1 mmol/L (3.5-5.1)
[2022-06-24] MEDS ORDERED: Magnesium Sulfate/Water 4 GM in Premix Bag 1 BAG IV ONE (08:00)
[2022-06-24] MEDS: Famotidine 20 MG Tab PO SCH (08:01)
[2022-06-24] MEDS: Aspirin 325 MG Tab PO SCH (08:01)
[2022-06-24] MEDS: Docusate Sodium 100 MG Cap PO SCH ×2 (08:01→20:21)
[2022-06-24] MEDS: Polyethylene Glycol 3350 Powder 17 GM Packet PO SCH (08:01)
[2022-06-24] MEDS: Metoprolol Succinate 100 MG Tab.ER PO SCH (08:02)
[2022-06-24] MEDS ORDERED: Lactated Ringers 500 ML IV ONE (08:57)
[2022-06-24] MEDS: Ibuprofen 800 MG Tab PO PRN ×2 (14:41→20:50)
[2022-06-24] MEDS: Ondansetron 4 MG/2 ML SDV IVPUSH PRN (15:00)
[2022-06-24] MEDS: traMADol 50 MG Tab PO PRN ×2 (15:04→21:05)
[2022-06-24] MEDS: Simvastatin 20 MG Tab PO SCH (20:21)
[2022-06-25] MEDS: Acetaminophen 325 MG Tab PO SCH ×2 (01:36→06:32)
[2022-06-25] MEDS: Ibuprofen 800 MG Tab PO PRN ×2 (03:48→10:39)
[2022-06-25] MEDS: traMADol 50 MG Tab PO PRN ×2 (05:33→11:37)
[2022-06-25 06:22] LABS: CARBON DIOXIDE,CO2 30.4 mmol/L (21.0-32.0); POTASSIUM,K 3.9 mmol/L (3.5-5.1)
[2022-06-25] MEDS: Gabapentin 300 MG Cap PO SCH (06:31)
[2022-06-25] MEDS: Lactated Ringers 1,000 ML IV SCH (08:04)
[2022-06-25] MEDS: Aspirin 325 MG Tab PO SCH (08:05)
[2022-06-25] MEDS: Polyethylene Glycol 3350 Powder 17 GM Packet PO SCH (08:05)
[2022-06-25] MEDS: Docusate Sodium 100 MG Cap PO SCH (08:05)
[2022-06-25] MEDS: Famotidine 20 MG Tab PO SCH (08:05)
[2022-06-25 10:18] VITALS: BP 106/57; PULSE 73
[2022-06-25] MEDS: Metoprolol Succinate 100 MG Tab.ER PO SCH (11:33)
== END 2022-06-25 13:00 | disposition home or self-care (01) | DRG 470 ==
LOC: MW.SDS 05:59 → MW.MS 06:00 → MW.SDS 06:29 → EEVIPCON 11:15 → MW.MS 13:00 → UNDOADMOB 13:00 → MW.MS 06-24 12:20
PROVIDERS: ADMIT Orthopaedic Surgery; ATTEND Orthopaedic Surgery
PROC: 0SRC0J9 Replacement of Right Knee Joint with Synthetic Substitute, Cemented, Open Approach (ICD-10-PCS; principal; 2022-06-23)
DX: M17.11 Unilateral primary osteoarthritis, right knee (principal); R94.31 Abnormal electrocardiogram [ECG] [EKG]; Z88.8 Allergy status to other drugs, medicaments and biological substances; Z79.82 Long term (current) use of aspirin; M81.0 Age-related osteoporosis without current pathological fracture; M54.50 Low back pain, unspecified; E78.00 Pure hypercholesterolemia, unspecified; H54.7 Unspecified visual loss; E66.9 Obesity, unspecified; R11.0 Nausea; T88.59XA Other complications of anesthesia, initial encounter; E78.2 Mixed hyperlipidemia; Z96.652 Presence of left artificial knee joint; Z68.39 Body mass index [BMI] 39.0-39.9, adult; Z79.899 Other long term (current) drug therapy; I10 Essential (primary) hypertension; Z90.49 Acquired absence of other specified parts of digestive tract; Z90.710 Acquired absence of both cervix and uterus; E78.5 Hyperlipidemia, unspecified; Z87.01 Personal history of pneumonia (recurrent); Z88.5 Allergy status to narcotic agent; Z20.822 Contact with and (suspected) exposure to COVID-19
CPT/HCPCS: 01402; 36415; 64450; 71045; 71045-26; 73560-26-RT; 73560-RT; 76942; 80048; 83735; 85014; 85018; 85025; 86850; 86900; 86901; 97110-GP; 97162-GP; 99221; 99231; A9270-GY; C1776; J0131; J0171; J0690; J0735; J1885; J2250; J2405; J2704; J2795; J3010; J3475; J3490; J7030; J7120